=== PATIENT | female | born 1975 | race Caucasian/White ===

== ENCOUNTER 2021-10-05 17:54 | Emergency (ER) | payer OTHER, SELFPAY ==
--- NOTE | ~2021-10-05 | XR_ITS ---
EXAMINATION: XR chest 2V CLINICAL INFORMATION: Reason for Exam COUGH, FEVER COMPARISON: Chest radiograph 03/17/2007 TECHNIQUE: 2 views of the chest XR/XR chest 2V FINDINGS/IMPRESSION: * Bandlike linear right basilar airspace opacity favored to reflect atelectasis. * No pneumothorax or pleural effusion. * Normal cardiomediastinal silhouette.
[2021-10-05 18:33] VITALS: BP 136/76; PULSE 87; RESP 18; TEMP 37.5; O2SAT 99; BMI 39.5
[2021-10-05 19:47] LABS: COVID-19 Test Negative (Negative); IDNOW Serial# 16C4AD1C; Influenza A Negative (Negative); Influenza B2 Negative (Negative)
--- NOTE | 2021-10-05 20:55 | ED.URI ---
HPI - URI/Sore Throat General Chief Complaint: Upper Respiratory Symptoms Stated Complaint: Diff Breathing Congestion Fever Time Seen by Provider: 10/05/21 20:17 Source: patient Mode of arrival: ambulatory Limitations: no limitations History of Present Illness HPI Narrative: Patient presents emergency department for evaluation of low-grade fevers, T-max 100.1 degrees, productive cough. Reports onset of symptoms 3 and half weeks ago, she presented to an urgent care for evaluation 3 weeks ago and was given a prescription for a Medrol Dosepak and Tessalon for treatment of bronchitis. She reports feeling better for a few days but the cough persisted. Over the past 2 days cough has been worse, making it difficult to sleep at night. Denies shaking chills, nasal congestion, sore throat, dyspnea on exertion, shortness of breath, chest pain, palpitations, nausea vomiting, abdominal pain. Denies any known sick contacts. MD elicited complaint: fever and cough Pertinent past history: other (Bronchitis) Onset (ago): week(s) Consistency: intermittent Description of mucous: clear Able to tolerate fluids by mouth: Yes Relieving factors: nothing Related Data Previous Rx's Medication Instructions Recorded azithromycin 250 mg tablet See Rx Instructions .ROUTE 10/05/21 .COMPLEX #6 tab prednisone 20 mg tablet 20 mg PO BID 5 Days #10 tab 10/05/21 Allergies Allergy/AdvReac Type Severity Reaction Status Date / Time acetaminophen [Percocet] Allergy Unknown n/v/d Verified 07/15/12 00:00 oxycodone [Percocet] Allergy Unknown n/v/d Verified 07/15/12 00:00 Review of Systems Review of Systems: Constitutional: Positive fever. No chills. No weakness. Positive fatigue. ENT/ Mouth: No Ear Pain, no Nasal Congestion, no sore throat, No Rhinorrhea, No Swallowing Difficulty Skin: No rash or itching. Cardiovascular: No chest pain. No palpitations. Respiratory: No shortness of breath. Positive cough. No sputum production. Gastrointestinal: No nausea. No vomiting. No diarrhea. No abdominal pain. Genitourinary: No burning micturition. No urinary frequency. Neurologic: No headache. No dizziness. No syncope. No numbness or tingling in the extremities. Musculoskeletal: No muscle pain. No back pain. No joint pain or stiffness. Yes all other systems are reviewed and are negative PMFSH Past Medical History Attestation statement: The following information was validated with the patient. Source: old records reviewed Social History Social History Advance Directives: No Advance Directives Information Provided: No Physical Exam Vital Signs: Vital Signs: Last Vital Signs Temp 99.5 F 10/05/21 18:33 Pulse 87 10/05/21 18:33 Resp 18 10/05/21 18:33 BP 136/76 10/05/21 18:33 Pulse Ox 99 10/05/21 18:33 BMI result Body Mass Index 39.5 Vital signs have been reviewed as normal and appeared to be correct. Blood pressure normal.? Heart rate normal.? Respiration rate normal. Temperature normal.? Oxygen saturation normal. Appearance: Alert.?Oriented to person, place and time. No acute distress.?Normal affect. Eyes: Pupils equal, round and reactive to light.? ENT: TM normal bilaterally. Pharynx normal.?? Neck: Normal inspection.? Neck supple.??No cervical adenopathy CVS: Heart sounds normal. Normal heart rate and rhythm.? Pulses normal.?? Respiratory: No respiratory distress.? Lung sounds clear to auscultation bilaterally in the upper lobes and left lower lobe, diminished in the right lower lobe Abdomen: Soft and non-tender. Normoactive bowel sounds. Skin: Skin warm and dry.? Normal skin color.? ? Extremities: No lower extremity edema.? Neuro: Moves all extremities spontaneously. Sensation intact bilaterally. No motor deficits. Ambulates with normal steady gait. Course Course Course Narrative: Patient is a 46-year-old female with no significant past medical history, presenting for evaluation of cough and low-grade fever the setting of recent treatment for bronchitis COVID-19 testing negative. Influenza testing negative. Chest x-ray reveals bandlike linear right basilar airspace opacity. At this time history and physical exam not consistent with ACS/PE, perc negative, no risk factors. Differential including bronchitis verses pneumonia. Patient is overall well-appearing, nontoxic, afebrile, no tachycardia or tachypnea/hypoxia. Speaking clear full sentences, ambulatory with steady gait. Discussed conservative treatment including rest, hydration, Tylenol/ibuprofen as needed for fever saline nasal spray, humidifier, [id number] cough medications, patient provided with new prescription for azithromycin, and prednisone. Advised to follow-up with primary care provider as needed, discussed reasons to return back to the emergency department. All questions were answered. Patient discharged home in stable condition. MDM - URI/Sore Throat Medical Records Attestation: I reviewed the patient's medical records. Lab Data Attestation: I reviewed the patient's lab results. Labs: Lab Results 10/05/21 10/05/21 Range/Units 18:37 18:37 COVID-19 ([facility]) Negative (Negative) COVID-19 Clin Com See Note Influenza Type A ([facility]) Negative (Negative) Influenza Type B ([facility]) Negative (Negative) Influenza A & B Note See Note Discharge Plan Discharge Clinical Impression: Bronchitis Patient Disposition: Home, Self-Care Instructions: Acute Bronchitis (ED) Additional Instructions: You have been given a new prescription for azithromycin, this is an antibiotic, please complete the entire course of this medication, in addition you have been given steroid, prednisone, please take this with food as it may cause stomach upset. Please contact your primary care provider to schedule follow-up visit within 1 week. Return to the emergency department any new or worsening symptoms or concerns. Prescriptions: New azithromycin 250 mg tablet See Rx Instructions .ROUTE .COMPLEX Qty: 6 0RF Rx Instructions: For 250 mg dose pack: take 500 mg today (day 1), then 250 mg for 4 days (days 2-5) prednisone 20 mg tablet 20 mg PO BID 5 Days Qty: 10 0RF Referrals: Kraen Hearn PA [Primary Care Provider] - 1 week Interventions: ED Discharge Assessment Last Done: 10/05/21 21:11 Discharge Date/Time: 10/05/21 21:12
== END 2021-10-05 21:12 | disposition home or self-care (01) ==
LOC: HO.ED 21:06
PROVIDERS: Emergency Provider Internal Medicine; PCP Physician Assistant
DX: J40 Bronchitis, not specified as acute or chronic (principal); R05.9 Cough, unspecified; R50.9 Fever, unspecified; R06.02 Shortness of breath; Z20.822 Contact with and (suspected) exposure to COVID-19; Z79.899 Other long term (current) drug therapy
CPT/HCPCS: 71046; 87502; 87635; 99283